=== PATIENT | female | born 1990 | race Asian ===

== ENCOUNTER 2019-01-01 18:34 | Emergency (ER) | payer OTHER ==
[~2019-01-01] VITALS: Ht 172.7 cm; Wt 67.6 kg
[2019-01-01 18:56] VITALS: BP 117/82; TEMP 98.9
== END 2019-01-01 19:33 | disposition home or self-care (01) ==
LOC: ED 18:34
PROC: 0HQ1XZZ Repair Face Skin, External Approach (ICD-10-PCS; principal; 2019-01-01)
DX: R55 Syncope and collapse (principal); S01.81XA Laceration without foreign body of other part of head, initial encounter; W01.10XA Fall on same level from slipping, tripping and stumbling with subsequent striking against unspecified object, initial encounter; Y92.098 Other place in other non-institutional residence as the place of occurrence of the external cause
CPT/HCPCS: 99283; J7040